=== PATIENT | male | born 1980 | race Hispanic/Latino ===

== ENCOUNTER 2017-04-11 09:33 | Emergency (ER) | payer SELFPAY ==
[2017-04-11] MEDS ORDERED: Dexamethasone 4 mg/ml Vial ONE (11:23)
[2017-04-11] MEDS ORDERED: Sodium Chloride 0.9% 100 ML ONE (11:23)
[2017-04-11] MEDS ORDERED: Ketorolac Tromethamine 30 MG/ML VIAL ONE (11:23)
[2017-04-11] MEDS ORDERED: cefTRIAXone\\ROCEPHIN 1 GM VIAL ONE (11:23)
[2017-04-11 11:33] LABS: #Lymphocytes 1.8 thou/uL (1.20-3.40); #Monocytes 1.2 thou/uL (0.11-0.59); %Eosinophils 0.1 % (0.0-10.0); Hematocrit 45.2 % (42.0-52.0); Mean Platelet Volume 7.2 fL (7.4-10.4)
[2017-04-11 11:51] LABS: Lactic Acid - Sepsis 1.2 mmol/L (0.5-2.2)
[2017-04-11 11:56] LABS: ALT (SGPT) 31 U/L (8-55); AST (SGOT) 26 U/L (5-34); Alkaline Phosphatase 73 U/L (40-150); Anion Gap 14 mmol/L (10-20); BUN (Urea Nitrogen) 8 mg/dL (8.9-20.6); Bilirubin, Total 0.7 mg/dL (0.2-1.2); Calc. Creatinine Clearance 0 mL/min (70-130); Calcium 9.7 mg/dL (7.8-10.44); Carbon Dioxide 25 mmol/L (22-29); Chloride 105 mmol/L (98-107); Estimated GFR-MDRD Greater than 90; Globulin 4.1 g/dL (2.4-3.5); Protein, Total 8.4 g/dL (6.0-8.3)
--- NOTE | 2017-04-11 13:55 | CT ---
CT OF THE FACE WITH CONTRAST: HISTORY: Facial swelling for two days. COMPARISON: None. TECHNIQUE: Multiple contiguous axial images were obtained in a CT of the face without contrast. Sagittal and c oronal reformats were performed. FINDINGS: There is severe soft tissue swelling of the left face. Within the area of the soft tissue swelling, there is a hypoechoic lesion, measuring approximately 1.4 cm in greatest dimension, which likely re presents a focal abscess. No periapical lucency is seen surrounding any of the cheek. No cervical adenopathy is seen. The salivary glands are unremarkable. The visualized intracranial structures are unremarkable. IMPRESSION: Soft tissue swelling of the face with small underlying fluid collection, likely representing an absc ess. POS: [facility]
[2017-04-11] MEDS ORDERED: ISOVUE-370 76%-LOCM 1 ML ONE (14:20)
[2017-04-11] MEDS ORDERED: Acetaminophen 500 MG TAB ONE (14:36)
[2017-04-11] MEDS ORDERED: Sulfameth/Trimethoprim DS 800-160mg TAB ONE (14:36)
== END 2017-04-11 14:33 | disposition home or self-care (01) ==
LOC: ERS 09:33
DX: L02.01 Cutaneous abscess of face (principal)
CPT/HCPCS: 10060; 70487; 80053; 83605; 85025; 87070; 87205; 96365; 96375; J0696; J1100; J1885; J2270; J7050